=== PATIENT | male | born 1975 | race African-American/Black ===

== ENCOUNTER 2019-10-15 18:07 | Emergency (ER) | payer OTHER ==
[2019-10-15 18:17] VITALS: BP 181/124; PULSE 86; RESP 18; TEMP 98.8
[2019-10-15] MEDS ORDERED: LIDOCAINE 1% INJ 10MG/ML (20 ML MDV) SQ ONE (18:31)
[2019-10-15] MEDS ORDERED: BACITRACIN OINT 1 EACH PACKET TOPICAL ONE (19:12)
[2019-10-15] MEDS ORDERED: lisinopriL 20 MG TAB PO STA (19:25)
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
== END 2019-10-15 19:36 | disposition home or self-care (01) ==
LOC: EC 18:07
DX: S61.012A Laceration without foreign body of left thumb without damage to nail, initial encounter (principal); F17.200 Nicotine dependence, unspecified, uncomplicated; I10 Essential (primary) hypertension; W26.0XXA Contact with knife, initial encounter; Y93.89 Activity, other specified
CPT/HCPCS: 99282; 12001; J2001